=== PATIENT | male | born 1965 | race Hispanic/Latino ===

== ENCOUNTER 2021-12-19 16:15 | Emergency (ER) | payer SELFPAY ==
[2021-12-19 16:24] VITALS: BP 97/61
[2021-12-19] MEDS ORDERED: LORazepam 1 MG TAB PO SCH (16:58)
--- NOTE | 2021-12-19 17:14 | Emergency Department Report ---
ED Medical Clearance HPI - General Chief complaint: Medical Clearance Stated complaint: MED CLEARANCE FOR [facility] Time Seen by Provider: 12/19/21 16:52 Source: patient, EMS Mode of arrival: Ambulatory - History of Present Illness Initial comments: 56 yo M brought in for medical clearance for acceptance to [facility]. Pt told me that he has been having watery diarrhea for the last 2 months because he has been going from one facility to another. He however denies any abdominal pain, nausea or vomiting. Pt reports history of anxiety and depression. No other modifying or associated factors. Allergies/Adverse reactions: Allergies Allergy/AdvReac Type Severity Reaction Status Date / Time No Known Allergies Allergy Unverified 12/19/21 17:13 ED Review of Systems ROS: Stated complaint: MED CLEARANCE FOR [facility] Other details as noted in HPI Comment: All other systems reviewed and negative Gastrointestinal: nausea, diarrhea, hematochezia. denies: vomiting Psychiatric: other (medical clearance ) ED Past Medical Hx - Past Medical History Previous Medical History?: Yes Hx Psychiatric Treatment: Yes (mdd) ED Physical Exam - General Limitations: No Limitations General appearance: alert, in no apparent distress, anxious - Head Head exam: Present: normal inspection - Eye Eye exam: Present: normal appearance Pupils: Present: normal accommodation - ENT ENT exam: Present: normal exam, normal orophraynx, mucous membranes moist - Neck Neck exam: Present: normal inspection, full ROM. Absent: tenderness - Respiratory Respiratory exam: Present: normal lung sounds bilaterally. Absent: respiratory distress, accessory muscle use - Cardiovascular Cardiovascular Exam: Present: regular rate, normal rhythm, normal heart sounds - GI/Abdominal GI/Abdominal exam: Present: soft, normal bowel sounds. Absent: distended, tenderness - Back Exam Back exam: Present: normal inspection. Absent: tenderness - Neurological Exam Neurological exam: Present: alert, oriented X3 - Psychiatric Psychiatric exam: Present: normal affect, normal mood - Skin Skin exam: Present: warm, normal color ED Course Vital Signs 12/19/21 16:23 Temperature 97.6 F Pulse Rate 92 H Respiratory 16 Rate Blood Pressure 97/61 [Left] O2 Sat by Pulse 97 Oximetry - Reevaluation(s) Reevaluation #1: 12/19/21 17:20 here with medical clearance and c/o watery diarrhea x 2 months -- concern for c diff especially since this patient reports moving from facilities to facilities-- so will order routine labs-- to rule out any organic cause and clear medically-- Reevaluation #2: 12/19/21 21:00 Pt continue to denies SI or HI and says he has been accepted at [facility] and just waiting for his medical clearance. According to the workup labs today patient is medically cleared ED Medical Decision Making - Lab Data Result diagrams: 12/19/21 17:25 12/19/21 17:25 ED Disposition Clinical Impression: Medical clearance for psychiatric admission Disposition: 01 HOME / SELF CARE / HOMELESS Is pt being admited?: No Does the pt Need Aspirin: No Condition: Stable Time of Disposition: 21:01
[2021-12-19 17:58] LABS: Hematocrit 41.9 % (35.5-45.6); Hemoglobin 14.1 gm/dl (11.8-15.2); Mean Corpuscular HGB Conc 34 % (32-34); Mean Corpuscular Volume 89 fl (84-94); Platelet Count 190 K/mm3 (140-440); Red Cell Distribution Width 14.8 % (13.2-15.2)
[2021-12-19 18:19] LABS: Alanine Aminotransferase 18 units/L (7-56); Albumin 4.5 g/dL (3.9-5); BUN/Creatinine Ratio 18; Blood Urea Nitrogen 18 mg/dL (9-20); Calcium 9.6 mg/dL (8.4-10.2); Hemolysis Index 5
[2021-12-19 18:37] LABS: Amphetamine Screen,Urine Negative; Benzodiazepines Screen,Urine Negative; Cannabinoid Screen,Urine Negative; Cocaine Screen,Urine Negative; Methadone Screen,Urine Negative; Opiate Screen,Urine Negative
[2021-12-19 19:04] LABS: Bilirubin,Urine NEG (Negative); Blood,Urine NEG (Negative); Color,Urine Yellow (Yellow)
[2021-12-19 19:08] LABS: Mucus,Urine 1+ /HPF
[2021-12-19 19:23] LABS: Protein,Urine >500 mg/dL (Negative)
[2021-12-19 20:47] LABS: Band Neutrophils # (Manual) 0.2 K/mm3; Basophils % (Manual) 0 % (0.0-1.8); Myelocytes # (Manual) 0.1 K/mm3; Platelet Clumps Rare; Platelet Estimate Consistent w Auto; RBC Morphology Normal; Total Cells Counted 100
== END 2021-12-19 22:56 | disposition home or self-care (01) ==
LOC: ED 16:15
DX: Z13.30 Encounter for screening examination for mental health and behavioral disorders, unspecified (principal); Z79.899 Other long term (current) drug therapy
CPT/HCPCS: 36415; 80053; 80307; 80320; 81001; 85007; 85025; 87086; 99283; G0480